=== PATIENT | male | born 1975 | race Native Hawaiian/Other Pacific Islander ===

== ENCOUNTER 2017-08-02 05:13 | Outpatient (CLI) | payer BC ==
[2017-08-02 05:44] LABS: PLATELET COUNT 246 K/uL (142-355)
[2017-08-02 06:34] LABS: POTASSIUM 4.1 mmol/L (3.6-5.2)
== END 2017-08-02 06:20 | disposition home or self-care (01) ==
LOC: EDBD 05:13 → LABW 05:13
PROVIDERS: Family Medicine
DX: R79.89 Other specified abnormal findings of blood chemistry (principal); R03.0 Elevated blood-pressure reading, without diagnosis of hypertension; E66.8 Other obesity
CPT/HCPCS: 36415; 80053; 80061; 81000; 84403; 84443; 85027